=== PATIENT | male | born 1960 | race Caucasian/White ===

== ENCOUNTER → 2019-08-14 | Outpatient (CLI) | payer OTHER ==
--- NOTE | 2019-08-14 15:51 | DIREP ---
PROCEDURE:US DUPLEX EXTREM VEINS UNILATER/LIMITED-RT COMPARISON:None. INDICATIONS:PAIN IN RIGHT LOWER LEG, SWELLING, MASS AND LUMP RIGHT LOWER LIMB TECHNIQUE:The right lower extremity was evaluated utilizing christiansen scale images with segmental compression, color Doppler, and spectral Doppler with respiratory variation and augmentation. FINDINGS: Common femoral vein:Patent Superficial femoral vein:Patent Popliteal vein:Patent Posterior tibial vein:Patent Peroneal vein:Patent Saphenofemoral junction:Patent Waveforms: Within normal limits. Other: There are findings of superficial venous thrombosis in the right medial calf. CONCLUSION:No deep venous thrombosis is demonstrated in the right lower extremity. There are findings consistent with superficial venous thrombosis in the medial right calf. Dictated by: ANDREA Physician on 08/14/2019 at 03:46 PM ac
== END | disposition home or self-care (01) ==
LOC: RAD 14:39
PROVIDERS: ATTEND Nurse Practitioner Adult Health
DX: R22.41 Localized swelling, mass and lump, right lower limb (principal); M79.661 Pain in right lower leg
CPT/HCPCS: 93971

== ENCOUNTER → 2019-08-24 | Outpatient (CLI) | payer OTHER ==
--- NOTE | 2019-08-24 11:59 | DIREP ---
PROCEDURE:US EXTREMITY LOWER SOFT TISSUE COMPARISON:[facility], US, US DUPLEX EXTREM VEINS UNILATER/LIMITED-RT, 08/14/2019, 03:18 PM. INDICATIONS:SWELLING, MASS AND LUMP RIGHT LOWER LIMB TECHNIQUE:Sonography of the soft tissues of the right medial calf was performed using grayscale and color Doppler imaging. FINDINGS: MASSES:None. FLUID COLLECTIONS:None. OTHER:Superficial venous thrombosis is incidentally noted. CONCLUSION:Thrombosed varicose vein in the area of concern. No focal abnormality otherwise noted. Dictated by: EIRNA Physician on 08/24/2019 at 11:53 AM ac
== END | disposition home or self-care (01) ==
LOC: RAD 10:21
PROVIDERS: ATTEND Nurse Practitioner
DX: M79.89 Other specified soft tissue disorders (principal)
CPT/HCPCS: 76882

== ENCOUNTER → 2019-08-25 | Outpatient (CLI) | payer OTHER ==
--- NOTE | 2019-08-25 15:42 | DIREP ---
PROCEDURE:US DUPLEX EXTREM VEINS UNILATER/LIMITED-RT COMPARISON:[facility], , DUPLEX EXTREM VEINS UNILATER/LIMITED-RT, 08/14/2019, 03:18 PM. INDICATIONS:LOCALIZED SWELLING, MASS AND LUMP OF RIGHT LEG, PHLEBITIS TECHNIQUE:The right lower extremity was evaluated utilizing christiansen scale images with segmental compression, color Doppler, and spectral Doppler with respiratory variation and augmentation. FINDINGS: Common femoral vein:Patent Profunda femoris vein: Patent Superficial femoral vein:Patent Popliteal vein:Patent Posterior tibial vein:Patent Peroneal vein:Patent Saphenofemoral junction:Patent Waveforms: Within normal limits. Other: Superficial venous thrombosis is incidentally noted in the right medial calf. A prominent lymph node is incidentally noted at the level of the right proximal superficial femoral vein. Additional images were provided of the right medial foot, extending to the heel. CONCLUSION:Overall no significant change from the prior. No deep venous thrombosis. Findings consistent with superficial venous thrombosis. Dictated by: ERINA Physician on 08/25/2019 at 03:21 PM ac
== END | disposition home or self-care (01) ==
LOC: RAD 09:21
PROVIDERS: ATTEND Nurse Practitioner
DX: I80.01 Phlebitis and thrombophlebitis of superficial vessels of right lower extremity (principal); R22.41 Localized swelling, mass and lump, right lower limb
CPT/HCPCS: 93971

== ENCOUNTER → 2019-08-30 | Outpatient (CLI) | payer OTHER ==
[2019-08-30 12:07] LABS: BASOPHIL % 0.6 % (0.0-0.2); EOSINOPHIL # 0.2 10^3/uL (0.0-0.2); EOSINOPHIL % 2.8 % (0.0-5.0); LYMPHOCYTES # 1.03 10^3/uL1 (1.0-4.8); LYMPHOCYTES % 19.4 % (24.0-44.0); MONOCYTES # 0.6 10^3/uL (0.3-0.8); MONOCYTES % 11.3 % (5.0-12.0); NEUTROPHIL # 3.5 10^3/uL (1.8-7.7); NEUTROPHILS % 65.7 % (41.0-85.0); PLATELET COUNT 174 10^3/uL (150-400); RED CELL DISTRIBUTION WIDTH 12.6 % (11.5-14.5)
[2019-08-30 12:27] LABS: CALCIUM 8.9 mg/dL (8.4-10.5); CARBON DIOXIDE 25.4 mmol/L (20.0-32)
== END | disposition home or self-care (01) ==
LOC: LAB 11:37
PROVIDERS: ATTEND Internal Medicine
DX: Z12.5 Encounter for screening for malignant neoplasm of prostate (principal); I82.91 Chronic embolism and thrombosis of unspecified vein; R53.83 Other fatigue; R60.1 Generalized edema
CPT/HCPCS: 36415; 80053; 80061; 84153; 84439; 84443; 85025; 85651; 86140

== ENCOUNTER → 2023-11-10 | Outpatient (CLI) | payer OTHER ==
[2023-11-10 09:45] LABS: BASOPHIL % 0.6 % (0.0-0.2); EOSINOPHIL # 0.2 10^3/uL (0.0-0.2); EOSINOPHIL % 3.6 % (0.0-5.0); HEMATOCRIT(ML) 46.3 % (37.0-53.0); HEMOGLOBIN 15.5 g/dL (13.9-16.3); LYMPHOCYTES # 1.01 10^3/uL1 (1.0-4.8); LYMPHOCYTES % 20.4 % (24.0-44.0); MEAN CORP HGB 30.1 pg (26-34); MEAN CORP HGB CONCENTRATION 33.5 g/dL (33-36.5); MEAN CORP VOLUME 89.9 fL (78-100); MONOCYTES # 0.6 10^3/uL (0.3-0.8); MONOCYTES % 12.7 % (5.0-12.0); NEUTROPHIL # 3.1 10^3/uL (1.8-7.7); NEUTROPHILS % 62.5 % (41.0-85.0); PLATELET COUNT 182 10^3/uL (150-400); RED BLOOD CELL 5.15 10^6/uL (4.50-5.90); RED CELL DISTRIBUTION WIDTH 12.8 % (11.5-14.5)
[2023-11-10 09:49] LABS: +ADD MANUAL DIFF(NO CHRG) NO
[2023-11-10 10:15] LABS: ALBUMIN(ML) 3.4 g/dL (3.4-5.0); ALBUMIN/GLOBULIN RATIO 1.03; BUN/CREATININE RATIO 11.76 (10.0-20.0); CALCIUM 8.6 mg/dL (8.4-10.5); CARBON DIOXIDE 25.2 mmol/L (20.0-32); CREATININE SERUM 1.02 mg/dL (0.59-1.40); EST GFR, NON-AA 73.3 (>/=60); LDL/HDL RATIO 1.6; POTASSIUM 4.2 mmol/L (3.6-5.2); URIC ACID 6.8 mg/dL (3.5-7.2)
== END | disposition home or self-care (01) ==
LOC: LAB 09:24
PROVIDERS: ATTEND Internal Medicine
DX: Z12.5 Encounter for screening for malignant neoplasm of prostate (principal); Z00.00 Encounter for general adult medical examination without abnormal findings; R60.9 Edema, unspecified
CPT/HCPCS: 36415; 80053; 80061; 84153; 84439; 84443; 84550; 85025

== ENCOUNTER → 2023-12-31 | Outpatient (CLI) | payer OTHER ==
[2023-12-31 11:50] LABS: BASOPHIL % 0.5 % (0.2-1.2); EOSINOPHIL # 0.2 10^3/uL (0.0-0.2); EOSINOPHIL % 2.6 % (0.0-5.0); HEMATOCRIT(ML) 47.7 % (37.0-53.0); HEMOGLOBIN 15.9 g/dL (13.9-16.3); LYMPHOCYTES # 1.61 10^3/uL1 (1.0-4.8); LYMPHOCYTES % 28.2 % (24.0-44.0); MEAN CORP HGB 29.5 pg (26-34); MEAN CORP HGB CONCENTRATION 33.3 g/dL (33-36.5); MEAN CORP VOLUME 88.5 fL (78-100); MONOCYTES # 0.8 10^3/uL (0.3-0.8); MONOCYTES % 13.2 % (5.0-12.0); NEUTROPHIL # 3.2 10^3/uL (1.8-7.7); NEUTROPHILS % 55.5 % (41.0-85.0); PLATELET COUNT 189 10^3/uL (150-400); RED BLOOD CELL 5.39 10^6/uL (4.50-5.90); RED CELL DISTRIBUTION WIDTH 12.8 % (11.5-14.5); WHITE BLOOD CELL 5.7 10^3/uL (4.5-11.0)
[2023-12-31 12:07] LABS: +ADD MANUAL DIFF(NO CHRG) NO
== END | disposition home or self-care (01) ==
LOC: RAD 11:38
PROVIDERS: ATTEND Internal Medicine
DX: M21.6X1 Other acquired deformities of right foot (principal); M77.31 Calcaneal spur, right foot; M79.671 Pain in right foot
CPT/HCPCS: 36415; 85025; 85651; 86140; 73610-RT; 73630-RT

== ENCOUNTER → 2024-06-12 | Outpatient (CLI) | payer OTHER ==
[2024-06-12 14:27] LABS: BASOPHIL % 0.4 % (0.2-1.2); EOSINOPHIL # 0.1 10^3/uL (0.0-0.2); EOSINOPHIL % 2.3 % (0.0-5.0); HEMATOCRIT(ML) 46.6 % (37.0-53.0); HEMOGLOBIN 15.9 g/dL (13.9-16.3); LYMPHOCYTES # 1.62 10^3/uL1 (1.0-4.8); LYMPHOCYTES % 28.4 % (24.0-44.0); MEAN CORP HGB CONCENTRATION 34.1 g/dL (33-36.5); MEAN CORP VOLUME 87.9 fL (78-100); MONOCYTES # 0.7 10^3/uL (0.3-0.8); NEUTROPHIL # 3.2 10^3/uL (1.8-7.7); NEUTROPHILS % 55.9 % (41.0-85.0); PLATELET COUNT 194 10^3/uL (150-400); RED CELL DISTRIBUTION WIDTH 12.5 % (11.5-14.5); WHITE BLOOD CELL 5.7 10^3/uL (4.5-11.0)
[2024-06-12 14:31] LABS: +ADD MANUAL DIFF(NO CHRG) NO
[2024-06-12 17:16] LABS: ALBUMIN(ML) 3.8 g/dL (3.4-5.0); ALBUMIN/GLOBULIN RATIO 1.151; ANION GAP 15.7; BUN/CREATININE RATIO 10.52 (10.0-20.0); CALCIUM 9.6 mg/dL (8.4-10.5); CARBON DIOXIDE 23.7 mmol/L (20.0-32); CREATININE SERUM 1.14 mg/dL (0.59-1.40); EST GFR, NON-AA 64.5 (>/=60); LDL/HDL RATIO 1.2; POTASSIUM 4.4 mmol/L (3.6-5.2)
== END | disposition home or self-care (01) ==
LOC: LAB 09:05
PROVIDERS: ATTEND Internal Medicine
DX: Z12.5 Encounter for screening for malignant neoplasm of prostate (principal); R60.9 Edema, unspecified; M25.571 Pain in right ankle and joints of right foot; M79.671 Pain in right foot; Z00.00 Encounter for general adult medical examination without abnormal findings
CPT/HCPCS: 84443; 80061; 80053; 36415; 84439; 85025; G0103

== ENCOUNTER → 2024-06-13 | Outpatient (CLI) | payer OTHER | END | disposition home or self-care (01) | LOC: RAD 09:23 | PROVIDERS: ATTEND Internal Medicine | DX: M19.071 Primary osteoarthritis, right ankle and foot (principal); M62.571 Muscle wasting and atrophy, not elsewhere classified, right ankle and foot; M25.571 Pain in right ankle and joints of right foot; R60.0 Localized edema; M21.961 Unspecified acquired deformity of right lower leg | CPT/HCPCS: 73718; 73721 ==